=== PATIENT | male | born 1990 | race Caucasian/White ===

== ENCOUNTER 2019-02-23 10:00 | Day surgery (SDC) | payer OTHER ==
[~2019-02-23 10:00] MED LIST: Buffered Lidocaine 1% SYRIN* 1 ML/SYRINGE INTRADERM ONE; Lactated Ringers 1000 ML Bag* 1,000 ML IV SCH
[2019-02-23] MEDS ORDERED: Buffered Lidocaine 1% SYRIN* 1 ML/SYRINGE INTRADERM ONE (10:21)
[2019-02-23] MEDS ORDERED: ceFAZolin 2 GM PREMIX in ORs 2 GM/50 ML BAG IVPB ONE (10:21)
[2019-02-23] MEDS ORDERED: Propofol* 10 MG/ML 20 ML BTL ONE (12:24)
[2019-02-23] MEDS ORDERED: Midazolam* 1 MG/ML 2 ML VIAL (2 MG) ONE (12:24)
[2019-02-23] MEDS ORDERED: Propofol* 500 MG/50 ML BTL ONE (12:25)
[2019-02-23] MEDS ORDERED: Lidocaine 2% PF * 5 ML VIAL ONE (12:26)
[2019-02-23] MEDS ORDERED: Bupivacaine 0.5%* 50 ML VIAL ONE (13:02)
[2019-02-23] MEDS ORDERED: Ketorolac INJ* 30 MG/ML 1 ML VIAL IV PRN (13:51)
[2019-02-23] MEDS ORDERED: Acetaminophen TAB* 325 MG PO PRN (13:51)
[2019-02-23] MEDS ORDERED: fentaNYL* 50 MCG/ML 2 ML VIAL (100 MCG VIAL) IV PRN (13:51)
[2019-02-23] MEDS ORDERED: oxyCODONE TAB* 5 MG TAB PO PRN (13:51)
[2019-02-23] MEDS ORDERED: Ondansetron INJ* 2 MG/ML VIAL IV PRN (13:51)
[2019-02-23] MEDS ORDERED: Naloxone* 0.4 MG/ML 1 ML VIAL IV PRN (13:51)
--- NOTE | 2019-02-23 14:14 | OP ---
Operative Report - Blank - Operative Report Date of Operation: 02/23/19 Note: PATIENT: Maulik Ken DATE OF : 1990 DATE OF SURGERY: 02/23/2019 SURGEON: Tanvir Corbin MD SANITATION WORKER: YAZ Montesinos, whos assistance was necessary for positioning, retraction, help with instrumentation, and closure. ANESTHESIOLOGIST: Dr. Bateman PREOPERATIVE DIAGNOSIS: Right 5th metatarsal fracture. POSTOPERATIVE DIAGNOSIS: Right 5th metatarsal fracture. OPERATION: Right 5th metatarsal fracture open reduction and internal fixation. ANESTHESIA: MAC IMPLANTS: Arthrex 4.5mm Kauffman Fracture Screw, 55 mm in length. TOURNIQUET TIME: Less than 30 minutes with an ankle Esmarch tourniquet. SPECIMENS: none ESTIMATED BLOOD LOSS: minimal COMPLICATIONS: none STATUS: Stable from the operating room to the recovery room and then home. INDICATIONS FOR PROCEDURE: Maulik sustained a right 5th metatarsal fracture. Both operative and non operative treatment alternatives were reviewed. Further, the nature and risks of surgery were reviewed in careful detail, in the office as well as the pre- operative holding area. Our discussions regarding the risks of surgery included , but were not limited to, infection, wound problems, nerve injury, neuroma, RSD , persistent symptoms, blood clot, nonunion, malunion, hardware failure, failure of the surgery, and even the remote chance of catastrophic complication. DESCRIPTION OF PROCEDURE: The patient was seen in the preoperative holding unit and informed written consent was obtained. The appropriate extremity was marked. The patient was then brought to the operating room and carefully positioned on the operating room table. Anesthesia was induced. All bony prominences were padded with great care. A chlorhexidine based pre-scrub was performed followed by a chloraprep prep and drape in standard sterile fashion. A surgical safety pause was then conducted in which we confirmed the appropriate patient, extremity, planned procedure, availability of equipment, indication and administration of prophylactic antibiotics, and DVT prophylaxis in the form of a compression boot on the non-surgical extremity. I began with an Esmarch exsanguination of limb and placement of the ankle Esmarch tourniquet. I then fluoroscopically identified the course of the fifth metatarsal. I then made an approximately 1-cm incision in line with the fifth metatarsal, approximately 2 cm proximal to the base. I carefully spread down to the base of the fifth metatarsal with great care taken to protect the branches of the sural nerve. I then placed a guidewire that was intramedullary that was carefully positioned along the course of the fifth metatarsal. I confirmed the position of the guidewire utilizing multiple views. The depth of the guidewire was measured. I then overdrilled the guidewire utilizing a 3.5mm cannulated drill. I used a drill sleeve to protect the soft tissues throughout the procedure. I then removed the drill and tapped. The tap had great purchase. I again measured the length of the screw from the tap. I then removed the tap and guidewire and placed the solid 4.5mm screw. This had excellent purchase and an excellent bite on the fifth metatarsal. At this point, I obtained final fluoroscopic images. We irrigated and then closed in layers utilizing 3-0 Monocryl and 3-0 nylon suture. A sterile dressing was then applied followed by a splint with the ankle in neutral position. The patient was then awakened from anesthesia and transferred to the recovery room in stable condition. There were no complications. All needle and sponge counts were correct at the end of the case. ATTESTATION: I attest I was present and scrubbed and performed the critical portions of the procedure myself. POSTOPERATIVE PLAN: The patient will remain [id number] for an anticipated duration of six weeks. Follow up will be in two weeks for likely suture removal and Steri-Strip application. We will plan to transition the patient into a tall Aircast boot at two weeks, and may begin gentle active range of motion of the ankle, avoiding inversion.
[2019-02-23] MEDS ORDERED: oxyCODONE TAB* 5 MG TAB ONE (14:37)
[2019-02-23] MEDS ORDERED: Ketorolac INJ* 30 MG/ML 1 ML VIAL ONE (14:37)
[2019-02-23 15:24] VITALS: BP 128/75
== END 2019-02-23 15:25 | disposition home or self-care (01) ==
LOC: OR 10:00
PROVIDERS: ATTEND Orthopaedic Surgery
DX: S92.351A Displaced fracture of fifth metatarsal bone, right foot, initial encounter for closed fracture (principal); Z72.0 Tobacco use; F41.8 Other specified anxiety disorders; W17.89XA Other fall from one level to another, initial encounter; Y92.9 Unspecified place or not applicable
CPT/HCPCS: 76000; A9270-GY; C1713; J0690; J1885; J2250; J2704; J3490

== ENCOUNTER 2020-02-05 08:30 | Emergency (ER) | payer OTHER ==
[2020-02-05 09:03] VITALS: BP 130/81
--- NOTE | 2020-02-05 09:56 | ED ---
Throat Pain/Nasal Congestion - HPI Summary HPI Summary: 29 yo WM c/o of cerumen impaction x 1 week associated with hearing loss on left ear due to "wax build up", tried OTC ear drops few days ago but still cannot hear - History of Current Complaint Chief Complaint: UCEar Time Seen by Provider: 02/05/20 09:13 Hx Obtained From: Patient Onset/Duration: Lasting Days Severity: Moderate Associated Signs And Symptoms: Positive: Negative Cough: None - Epiglottits Risk Factors Epiglottis Risk Factors: Negative - Allergies/Home Medications Allergies/Adverse Reactions: Allergies Allergy/AdvReac Type Severity Reaction Status Date / Time No Known Allergies Allergy Verified 02/05/20 08:59 Home Medications: Home Medications NK [No Home Medications Reported] 02/05/20 [History Confirmed 02/05/20] PMH/Surg Hx/FS Hx/Imm Hx Previously Healthy: Yes Musculoskeletal History: Denies: Other Musculoskeletal History Sensory History: Reports: Hx Contacts or Glasses - glasses and contacts Denies: Hx Hearing Aid Opthamlomology History: Reports: Hx Contacts or Glasses - glasses and contacts Neurological History: Reports: Hx Headaches, Hx Migraine - Surgical History Surgery Procedure, Year, and Place: tonsilectomy as a teen. left middle finger , 2004, [facility] [place]. 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 broken metatasal Hx Anesthesia Reactions: No Infectious Disease History: No Infectious Disease History: Denies: Hx Clostridium Difficile, Hx Hepatitis, Hx Human Immunodeficiency Virus (HIV), Hx of Known/Suspected MRSA, Hx Shingles, Hx Tuberculosis, Hx Known/ Suspected VRE, Hx Known/Suspected VRSA, History Other Infectious Disease, Traveled Outside the [place] in Last 30 Days - Family History Known Family History: Positive: Non-Contributory - Social History Occupation: Employed Full-time Alcohol Use: Occasionally Alcohol Amount: 1-2 q other week Substance Use Type: Reports: None Smoking Status (MU): Never Smoked Tobacco Type: Smokeless Tobacco Amount Used/How Often: a can/ 2-3weeks Length of Time of Smoking/Using Tobacco: 3 weeks Have You Smoked in the Last Year: No Review of Systems Constitutional: Negative Positive: Photophobia Positive: Ear Ache, Other - and decreased hearing on left due to ear wax Cardiovascular: Negative Respiratory: Negative Gastrointestinal: Negative Genitourinary: Negative Musculoskeletal: Negative Skin: Negative Neurological/Mental Status: Negative Positive: Headache All Other Systems Reviewed And Are Negative: Yes Physical Exam - Summary Physical Exam Summary: Vital Signs Reviewed: Yes Gen: NAD Eye Exam: Normal Eyes: Positive: Conjunctiva Clear ENT: B/L cerumen impaction Neck: Supple Respiratory: Lungs clear, Normal breath sounds. Negative: Crackles, Rhonchi, Stridor, Wheezing Cardiovascular Exam: Normal, RRR, S1, S2 Abdomen: NT/ND Musculoskeletal Exam: Normal Neurological Exam: Normal Psychological Exam: Normal Skin Exam: Normal Vital Signs On Initial Exam: Initial Vitals Temp Pulse Resp BP Pulse Ox 36.7 C 72 16 130/81 99 02/05/20 08:55 02/05/20 08:55 02/05/20 08:55 02/05/20 08:55 02/05/20 08:55 Diagnostics - Vital Signs Vital Signs Temp Pulse Resp BP Pulse Ox 02/05/20 08:55 36.7 C 72 16 130/81 99 - Laboratory Lab Statement: Any lab studies that have been ordered have been reviewed, and results considered in the medical decision making process. EENT Course/Dx - Course Assessment/Plan: B/L cerumen impaction- successfully removed by irrigation, pt can hear - Diagnoses Provider Diagnoses: Impacted cerumen - Critical Care Time Critical Care Statement: Critical care time is provided exclusive of any time spent performing procedures. Discharge ED - Sign-Out/Discharge Documenting (check all that apply): Patient Departure All imaging exams completed and their final reports reviewed: No Studies - Discharge Plan Condition: Stable Disposition: HOME Patient Education Materials: Otitis Externa (ED) Referrals: Will Stallworth MD [Primary Care Provider] - - Billing Disposition and Condition Condition: STABLE Disposition: Home
== END 2020-02-05 10:10 | disposition home or self-care (01) ==
LOC: UCEAST 08:30
DX: H61.23 Impacted cerumen, bilateral (principal); F17.220 Nicotine dependence, chewing tobacco, uncomplicated
CPT/HCPCS: 99213; G0463